=== PATIENT | male | born 1990 | race Caucasian/White ===

== ENCOUNTER 2018-09-16 20:27 | Emergency (ER) | payer BC ==
[2018-09-16 20:52] VITALS: BP 128/68
--- NOTE | 2018-09-16 21:15 | UC ---
Throat Pain/Nasal Reuben HPI - HPI Summary HPI Summary: 28-year-old male comes in with a chief complaint of sore throat and upper respiratory tract infection symptoms started today. Patient's is and she is due soon and he wants to know if he has strep throat. Pains worse when he swallows. Better when he does not. No fevers. He did take some ibuprofen which is not sure if that helped with anything. No myalgias. No chest congestion or shortness of breath. - History of Current Complaint Chief Complaint: UCGeneralIllness Stated Complaint: SORE THROAT Time Seen by Provider: 09/16/18 21:07 Pain Intensity: 2 - Allergies/Home Medications Allergies/Adverse Reactions: Allergies Allergy/AdvReac Type Severity Reaction Status Date / Time No Known Allergies Allergy Verified 09/16/18 20:52 Home Medications: Home Medications Beclomethasone Dipropionate [Qnasl] 10.6 gm BOTH NARES DAILY WITH MEAL 09/16/18 [History Confirmed 09/16/18] Cetirizine HCl [Zyrtec] 10 mg PO DAILY WITH MEAL 09/16/18 [History Confirmed ] Losartan Potassium [Cozaar] 50 mg PO DAILY WITH MEAL 09/16/18 [History Confirmed 09/16/18] Metoprolol Succinate 50 mg PO DAILY WITH MEAL 09/16/18 [History Confirmed ] PMH/Surg Hx/FS Hx/Imm Hx Previously Healthy: Yes - Surgical History Surgical History: None Surgery Procedure, Year, and Place: rhino plasty - Family History Known Family History: Positive: Non-Contributory - Social History Alcohol Use: None Substance Use Type: None Smoking Status (MU): Never Smoked Tobacco Review of Systems All Other Systems Reviewed And Are Negative: Yes Constitutional: Positive: Negative Skin: Positive: Negative Eyes: Positive: Negative ENT: Positive: Sore Throat, Nasal Discharge Respiratory: Positive: Negative Cardiovascular: Positive: Negative Gastrointestinal: Positive: Negative Motor: Positive: Negative Neurovascular: Positive: Negative Musculoskeletal: Positive: Negative Neurological: Positive: Negative Psychological: Positive: Negative Is Patient Immunocompromised?: No Physical Exam Triage Information Reviewed: Yes Appearance: No Pain Distress, Well-Nourished, Ill-Appearing - mild Vital Signs: Initial Vital Signs Temp 98.6 F 09/16/18 20:49 Pulse 64 09/16/18 20:49 Resp 18 09/16/18 20:49 BP 128/68 09/16/18 20:49 Pulse Ox 99 09/16/18 20:49 Vital Signs Reviewed: Yes Eye Exam: Normal Eyes: Positive: Conjunctiva Clear ENT: Positive: Pharyngeal erythema, Nasal congestion, Nasal drainage, TMs normal Neck exam: Normal Neck: Positive: Supple, Nontender Respiratory: Positive: Lungs clear, Normal breath sounds, No respiratory distress Cardiovascular: Positive: RRR Musculoskeletal Exam: Normal Musculoskeletal: Positive: Strength Intact, ROM Intact Neurological Exam: Normal Neurological: Positive: Alert, Muscle Tone Normal Psychological Exam: Normal Psychological: Positive: Normal Response To Family, Age Appropriate Behavior Skin Exam: Normal Throat Pain/Nasal Course/Dx - Course Course Of Treatment: DISCUSSED VIRAL VERSES BACTERIAL INFECTION AND THE ROLE OF ANTIBIOTICS. THE PATIENT WISHES TO BE ON ANTIBIOTICS AT THIS TIME. - Differential Dx/Diagnosis Provider Diagnosis: Pharyngitis Discharge - Sign-Out/Discharge Documenting (check all that apply): Patient Departure All imaging exams completed and their final reports reviewed: No Studies - Discharge Plan Condition: Stable Disposition: HOME Prescriptions: Amoxicillin PO (*) [Amoxicillin 875 MG (*)] 875 mg PO BID #28 tab Patient Education Materials: Pharyngitis (ED) Referrals: [facility] [Outside] Additional Instructions: FOLLOW UP WITH YOUR DOCTOR IF NOT COMPLETELY IMPROVED. GET RECHECKED SOONER FOR ANY WORSENING OF YOUR CONDITION OR QUESTIONS OR CONCERNS. - Billing Disposition and Condition Condition: STABLE Disposition: Home
[2018-09-16] MEDS ORDERED: Amoxicillin PO (*) 500 MG CAP PO ONE (21:43)
== END 2018-09-16 22:00 | disposition home or self-care (01) ==
LOC: UCEAST 20:27
DX: J02.9 Acute pharyngitis, unspecified (principal)
CPT/HCPCS: 87651; 99202; A9270-GY; G0463

== ENCOUNTER 2018-09-23 12:01 | Emergency (ER) | payer BC ==
[2018-09-23 13:26] VITALS: BP 125/53
--- NOTE | 2018-09-23 13:38 | UC ---
UC General HPI - HPI Summary HPI Summary: PT C/O ONGOING SINUS INFECTION FOR ABOUT 10 DAYS. HE WAS SEEN AT THE [facility] AND STARTED ON AMOXICILLIN 7 DAYS AGO. HE HAS WORSENING SINUS PAIN TO POINT OF UPPER TEETH HURT PLUS ONGOING DRAINAGE THAT IS GREEN AND SOMETIMES BLOODY. HE HAS HAD SINUS INFECTIONS IN PAST AND THIS IS THE SAME. HE HAS ALSO HAD SEPTAL AND TURBINATE SURGERIES BY DR ARRIAGA. HE CALLED DR ARRIAGA INDUSTRIAL ORDER CLERK AND THEY HAVE A 2 WEEK WAIT. SELF TXING WITH NASAL FLUSHES. - History of Current Complaint Chief Complaint: UCGeneralIllness Stated Complaint: SINUS PAIN/CONGESTION Time Seen by Provider: 09/23/18 13:27 Hx Obtained From: Patient Onset/Duration: Gradual Onset Timing: Constant Pain Intensity: 3 - Allergy/Home Medications Allergies/Adverse Reactions: Allergies Allergy/AdvReac Type Severity Reaction Status Date / Time No Known Allergies Allergy Verified 09/23/18 13:20 PMH/Surg Hx/FS Hx/Imm Hx - Additional Past Medical History Additional PMH: SINUSITIS, ALLERGIES Cardiovascular History: Hypertension - Surgical History Surgery Procedure, Year, and Place: rhino plasty - Family History Known Family History: Positive: Non-Contributory - Social History Lives: With Family Alcohol Use: Occasionally Substance Use Type: None Smoking Status (MU): Never Smoked Tobacco Review of Systems All Other Systems Reviewed And Are Negative: Yes ENT: Positive: Sore Throat, Ear Ache, Nasal Discharge, Sinus Congestion, Sinus Pain/Tenderness Physical Exam Triage Information Reviewed: Yes Appearance: Well-Appearing Vital Signs: Initial Vital Signs Temp 99.2 F 09/23/18 13:21 Pulse 80 09/23/18 13:21 Resp 15 09/23/18 13:21 BP 125/53 09/23/18 13:21 Pulse Ox 100 09/23/18 13:21 Vital Signs Reviewed: Yes Eyes: Positive: Conjunctiva Clear ENT: Positive: Pharynx normal, Nasal congestion, Nasal drainage - DARK GREEN, TMs normal, Sinus tenderness - MAXILLARY, Uvula midline, Other - DARK GREEN POST NASAL DRIP IN THORAT. Negative: Trismus, Muffled voice, Hoarse voice Neck: Positive: Supple, Nontender, No Lymphadenopathy Respiratory: Positive: Lungs clear, Normal breath sounds Cardiovascular: Positive: RRR, No Murmur Abdomen Description: Positive: Nontender Musculoskeletal: Positive: ROM Intact Neurological: Positive: Alert Psychological: Positive: Age Appropriate Behavior Skin Exam: Normal Course/Dx - Differential Dx - Multi-Symptom Differential Diagnoses: Other - C/W SINUSITIS TX FAILURE ON AMOXICILLIN. RISK/ BENEFITS OF LEVAQUIN D/W PT, HE IS WILLING TO TAKE RISK. ALSO RISK OF C-DIFF COLITIS D/W PT AND HE IS WILLING TO TAKE THAT RISK WELL. WILL STOP THE AMOXICILLIN, ADD A STEROID AND LEVAQUIN. PT INSTRUCTED TO START A PROBIOTIC. HE WILL F/U WITH HIS ENT, DR ARRIAGA. - Diagnoses Provider Diagnosis: Sinusitis Discharge - Sign-Out/Discharge Documenting (check all that apply): Patient Departure All imaging exams completed and their final reports reviewed: No Studies - Discharge Plan Condition: Stable Disposition: HOME Prescriptions: Levofloxacin TAB* [Levaquin TAB*] 500 mg PO DAILY 5 Days #5 tab methylPREDNISolone [Medrol Dosepak 4 MG*] 0 mg PO .SEE NIDIA INSTRUCTION #1 tab Patient Education Materials: Sinusitis (ED) Referrals: Ramón Arriaga MD [Medical Doctor] - 10/07/18 Additional Instructions: STOP THE AMOXICILLIN. START A PROBIOTIC DAILY FOR 1-2 WEEKS. - Billing Disposition and Condition Condition: STABLE Disposition: Home
== END 2018-09-23 13:48 | disposition home or self-care (01) ==
LOC: UCCORT 12:01
DX: J32.9 Chronic sinusitis, unspecified (principal); I10 Essential (primary) hypertension
CPT/HCPCS: 99212; G0463